=== PATIENT | male | born 1970 | race Caucasian/White ===

== ENCOUNTER 2018-01-22 19:10 | Emergency (ER) | payer BC ==
[~2018-01-22] VITALS: Ht 175.3 cm; Wt 93.2 kg
[2018-01-22 19:13] VITALS: BP 144/90; TEMP 98.2
[2018-01-22] MEDS ORDERED: ZYLOPRIM 100MG100 MG PO (19:21)
[2018-01-22] MEDS ORDERED: NORCO 325 MG-51 TAB PO (19:59)
[2018-01-22 20:06] VITALS: PULSE 71
== END 2018-01-22 20:05 | disposition home or self-care (01) ==
LOC: COL.ER 19:10
DX: M25.562 Pain in left knee (principal); M10.9 Gout, unspecified; Z90.49 Acquired absence of other specified parts of digestive tract; W22.8XXA Striking against or struck by other objects, initial encounter
CPT/HCPCS: L1846